=== PATIENT | male | born 1940 | race Caucasian/White ===

== ENCOUNTER 2022-06-13 07:02 | Inpatient (IN) ==
[2022-06-13] MEDS ORDERED: IOPAMIDOL 100 ML BOTTLE IV ONE (07:03)
--- NOTE | 2022-06-13 07:19 | Emergency Department Note ---
HPI General Chief complaint: Trauma Stated complaint: Fall, right hip pain Time Seen by Provider: 06/13/22 07:16 Source: EMS Mode of arrival: EMS Limitations: no limitations History of Present Illness HPI Narrative: Narrative: Patient is a 81-year-old male with a medical history significant for small lymphocytic B-cell lymphoma who presents to the emergency department due to fall last night. Patient states that he started chemotherapy a couple of weeks ago, and since then he has been very weak. He also endorses shortness of breath since that time. He states that he has to drink a lot of water, and since dr inking a lot of water has been urinating a lot. He states that he slipped on liquid last night and was unable to get up for approximately an hour and a half. He endorses right hip pain after the fall, and is concerned that he cracked his hip. He denies hitting his head, loss of consciousness, changes in vision/hearing/speech, numbness/tingling/weakness, nausea, vomiting, and any other concerns. Related Data Home Medications Medication Instructions Recorded Confirmed glucosamine HCl 1,500 mg tablet 1,500 mg PO QDAY 06/04/18 06/13/22 latanoprost 0.005 % eye drops 1 drp ophthalmic (eye) DAILY 25 06/04/18 06/13/22 days ##3 vit C 150 mg-vit E 30 unit-lutein 1 cap PO QAM 06/04/18 06/13/22 5 [id number] 3 150 mg capsule (Ocuvite) Previous Rx's Medication Instructions Recorded tamsulosin 0.4 mg capsule 0.4 mg PO QDAY #90 caps 06/17/21 sildenafil (pulm.hypertension) 20 See Rx Instructions .Route 08/28/21 mg tablet .COMPLEX #50 tabs olmesartan 20 mg tablet 20 mg PO QDAY #90 tabs 10/21/21 apixaban 5 mg tablet (Eliquis) 5 mg PO BID #180 tabs 05/27/22 omeprazole 20 mg tablet,delayed 20 mg PO QDAY #90 tabs 05/27/22 release Allergies Allergy/AdvReac Type Severity Reaction Status Date / Time ciprofloxacin [From Cipro] Allergy Unknown unknown Verified 06/13/22 07:02 levofloxacin Allergy Unknown unknown Verified 06/13/22 07:02 Review of Systems ROS ROS Narrative: Narrative: Constitutional: Reports weakness (Generalized); Denies fever Eyes: Denies eye pain or vision change ENT ED: Denies throat pain, hearing loss or rhinorrhea Cardiovascular: Denies chest pain, dyspnea on exertion, orthopnea or edema Respiratory: Reports shortness of breath; Denies cough Gastrointestinal: Denies abdominal pain, nausea, vomiting, diarrhea, constipation, hematochezia or melena Genitourinary: Denies dysuria, frequency, hematuria or incontinence Musculoskeletal: Reports joint pain (Right hip); Denies back pain or myalgia Integumentary: Denies rash or lesions Neurological: Denies headache, weakness, numbness, confusion, abnormal gait or dizziness Psychiatric: Denies anxiety, suicidal thoughts or homicidal thoughts Endocrine: Denies fatigue or polyuria Hematological/Lymphatic: Denies easy bleeding or easy bruising PFSH Narrative Patient History Narrative: Narrative: Medical/Surgical/Family History All Active Problems (Updated 06/13/22 @ 23:40 by Lázaro Sharma MD) Closed hip fracture (Acute) Small lymphocytic B-cell lymphoma involving skin (Acute) Medicare annual wellness visit, subsequent (Acute) Anemia (Acute) 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 (Acute) Elevated PSA (Acute) Iron deficiency (Acute) Dyspnea on exertion (Acute) Fatigue (Acute) BPH (benign prostatic hyperplasia) (Chronic) Medicare annual wellness visit, initial (Acute) CLL (chronic lymphocytic leukemia) (Chronic) Abnormal ultrasound of abdomen (Chronic) Lightheadedness (Chronic) Essential hypertension (Chronic) Right cataract (Chronic) Congenital dysplasia of hips, bilateral (Chronic) High blood pressure (Chronic) Right hip pain (Chronic) Cerebrovascular accident (CVA) (Chronic) 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) Weakness (Chronic) Paresthesia (Chronic) Osteoarthritis (Chronic) Numbness and tingling (Chronic) Multiple sclerosis (Chronic) Low back pain (Chronic) Lacunar syndrome (Chronic) Knee pain (Chronic) Hypercoagulopathy (Chronic) Hoarseness (Chronic) Hernia, inguinal, unilateral (Chronic) Hearing loss (Chronic) Erectile dysfunction (Chronic) Enlarged prostate (Chronic) Colon adenoma (Chronic) CVA (cerebral vascular accident) (Chronic) Cataract (Chronic) Bronchitis (Chronic) Actinic keratosis (Chronic) Abnormal blood chemistry (Chronic) Medical History Abnormal blood chemistry 07/15/2013-abnormal d dimer Abnormal respiratory rate on exertion Actinic keratosis Basal cell carcinoma Basal cell carcinoma Bronchitis chronic Cataract Cerebrovascular accident (CVA) Chest pain CLL (chronic lymphocytic leukemia) 1 skin lesion with this finding on histology, but no systemic findings with Dr. Leos. Now follows up with Onc annually. Colon adenoma 03/17/2002. Colonoscopy 05/20/2016 showed HP & diverticuli Congenital dysplasia of hips, bilateral mild Constipation CVA (cerebral vascular accident) 06/21 residual deficit RUE Enlarged prostate Erectile dysfunction Fatigue Finger fracture, right Hearing loss Hemoptysis 02/25/2013 Hernia, inguinal, unilateral High blood pressure Hoarseness Hypercoagulopathy 03/22/2014 INR slightly supratherapeutic today at 3.2. 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 05/20/16 HP & diverticuli Hx of foot surgery 12/22 right foot -Dr. Pitt Hx of tonsillectomy Family History father Malignant neoplasm of brain glioblastoma grandmother (maternal) Type 2 diabetes mellitus Social History Smoking Status: Never smoker Alcohol Intake Frequency: does not drink Exam Narrative Narrative: Narrative: General Limitations: no limitations General appearance: Present alert and in no apparent distress; Absent anxious or appears intoxicated Head Head: Present atraumatic and normocephalic Eye Eye: Present PERRL and EOMI; Absent scleral icterus ENT ENT: Present mucous membranes moist; Absent nasal congestion Neck Neck: Present full ROM; Absent tenderness Chest Chest: Present normal inspection and symmetric chest wall rise; Absent tenderness Respiratory Respiratory: Present normal lung sounds bilaterally; Absent respiratory distress or accessory muscle use Cardiovascular Cardiovascular: Present regular rate, normal rhythm and normal heart sounds Adbominal Abdominal: Present soft and normal bowel sounds; Absent distention or tenderness Extremities Extremities: Present normal inspection, full ROM and tenderness (Right hip) Back Back: Present normal inspection and full ROM; Absent tenderness Neurological Neurological: Present alert and oriented X3 Psychiatric Psychiatric: Present normal affect and normal mood Skin Skin: Present warm (WNL), dry and normal color Course Vital Signs Vital signs: Vital Signs Temperature 98.7 F 06/13/22 07:02 Pulse Rate 73 06/13/22 07:02 Respiratory Rate 16 06/13/22 07:02 Blood Pressure 98/53 06/13/22 07:02 Pulse Oximetry (%) 99 06/13/22 07:02 Oxygen Delivery Method 06/13/22 07:02 Temperature 99.2 F H 06/13/22 19:07 Pulse Rate 90 06/13/22 19:07 Respiratory Rate 13 06/13/22 19:07 Blood Pressure 127/73 06/13/22 19:06 Pulse Oximetry (%) 95 06/13/22 21:30 Oxygen Delivery Method 06/13/22 21:30 Oxygen Flow Rate (L/min) 6 06/13/22 18:23 [facility] MDM Narrative Medical decision making narrative: Narrative: Patient is a 81-year-old male who presents to the emergency department due to fall. It is possible the patient has a hip fracture given this fall, hip pain, and tenderness. Given patient's shortness of breath, history of pulmonary embolus, and recent diagnosis of cancer there is concern for potential pulmonary embolus. CT PE is negative for pulmonary embolus. Patient's hip x-ray does demonstrate hip fracture. I have spoken to Dr. Sanchez for orthopedics to has agreed to see patient and admit due to his hip fracture. He has requested consult with hospitalist due to patient's diagnosis of CLL. I spoken to Dr. Harkins who has agreed to consult. Lab Data Result diagrams: 06/13/22 07:32 Labs: Lab Results 06/13/22 06/13/22 06/13/22 Range/Units 07:30 07:32 07:32 WBC 17.0 H (4.5-11.0) K/mcL RBC 5.41 (4.63-6.08) M/mcL Hgb 16.6 (13.7-17.5) g/dL Hct 48.3 (40.1-51.0) % POC Hct (41-55) MCV 89.3 (80.0-100.0) fL MCH 30.7 (26.0-34.0) pg MCHC 34.4 (31.0-36.0) g/dL RDW 15.2 H (11.5-14.5) % Plt Count 168 (140-440) K/mcL MPV 10.3 (7.4-10.4) fL Immature Gran % (Auto) 1.0 H (0.0-0.5) % Neut % (Auto) 88.2 H (38.0-78.0) % Lymph % (Auto) 1.3 L (15.5-49.0) % [place] % (Auto) 8.8 (1.0-12.0) % Eos % (Auto) 0.5 (0.0-7.0) % Baso % (Auto) 0.2 (0.0-2.0) % Lymph # (Auto) 0.22 L (1.50-4.80) K/mcL [place] # (Auto) 1.49 H (0.10-0.90) K/mcL Eos # (Auto) 0.09 (0.00-0.70) K/mcL Baso # (Auto) 0.03 (0.00-0.30) K/mcL Immature Gran # 0.17 H (0.00-0.05) K/mcl Absolute Neutrophils 15.01 H (1.80-8.00) K/mcL PT 16.5 H (11.9-14.5) sec INR 1.3 H (0.9-1.1) POC Sodium (133-145) POC Potassium (3.3-5.1) POC Chloride (96-108) POC Total CO2 (22-30) POC BUN (6-20) POC Creatinine (0.6-1.2) POC Glucose (70-105) POC WB Ioniz Calcium (1.16-1.32) Total Creatine Kinase 109 (24-195) U/L Procalcitonin (<0.10) ng/mL Urine Color Urine Appearance (Clear) Urine pH (5.0-9.0) Ur Specific [place] (1.000-1.035) Urine Protein (Negative) mg/dL Urine Glucose (UA) (Negative) mg/dL Urine Ketones (Negative) mg/dL Urine Occult Blood (Negative) cristina/mcL Urine Nitrate (Negative) Urine Bilirubin (Negative) mg/dL Urine Urobilinogen mg/dL Ur Leukocyte Esterase (Negative) /uL Urine RBC (0-3) /hpf Urine WBC (0-4) /hpf Ur Squamous Epith Cells (0-4) /hpf Urine Bacteria (0) /hpf Urine Mucus (None) /hpf Ur Culture Indicated? POC Troponin I (0.02-0.08) 06/13/22 06/13/22 06/13/22 Range/Units 07:32 07:33 08:37 WBC (4.5-11.0) K/mcL RBC (4.63-6.08) M/mcL Hgb (13.7-17.5) g/dL Hct (40.1-51.0) % POC Hct 53.0 (41-55) MCV (80.0-100.0) fL MCH (26.0-34.0) pg MCHC (31.0-36.0) g/dL RDW (11.5-14.5) % Plt Count (140-440) K/mcL MPV (7.4-10.4) fL Immature Gran % (Auto) (0.0-0.5) % Neut % (Auto) (38.0-78.0) % Lymph % (Auto) (15.5-49.0) % [place] % (Auto) (1.0-12.0) % Eos % (Auto) (0.0-7.0) % Baso % (Auto) (0.0-2.0) % Lymph # (Auto) (1.50-4.80) K/mcL [place] # (Auto) (0.10-0.90) K/mcL Eos # (Auto) (0.00-0.70) K/mcL Baso # (Auto) (0.00-0.30) K/mcL Immature Gran # (0.00-0.05) K/mcl Absolute Neutrophils (1.80-8.00) K/mcL PT (11.9-14.5) sec INR (0.9-1.1) POC Sodium 130 L (133-145) POC Potassium 4.7 (3.3-5.1) POC Chloride 95 L (96-108) POC Total CO2 30.0 (22-30) POC BUN 28 H (6-20) POC Creatinine 1.2 (0.6-1.2) POC Glucose 89 (70-105) POC WB Ioniz Calcium 1.17 (1.16-1.32) Total Creatine Kinase (24-195) U/L Procalcitonin 0.34 H (<0.10) ng/mL Urine Color Urine Appearance (Clear) Urine pH (5.0-9.0) Ur Specific [place] (1.000-1.035) Urine Protein (Negative) mg/dL Urine Glucose (UA) (Negative) mg/dL Urine Ketones (Negative) mg/dL Urine Occult Blood (Negative) cristina/mcL Urine Nitrate (Negative) Urine Bilirubin (Negative) mg/dL Urine Urobilinogen mg/dL Ur Leukocyte Esterase (Negative) /uL Urine RBC (0-3) /hpf Urine WBC (0-4) /hpf Ur Squamous Epith Cells (0-4) /hpf Urine Bacteria (0) /hpf Urine Mucus (None) /hpf Ur Culture Indicated? POC Troponin I 0 L (0.02-0.08) 06/13/22 Range/Units 12:42 WBC (4.5-11.0) K/mcL RBC (4.63-6.08) M/mcL Hgb (13.7-17.5) g/dL Hct (40.1-51.0) % POC Hct (41-55) MCV (80.0-100.0) fL MCH (26.0-34.0) pg MCHC (31.0-36.0) g/dL RDW (11.5-14.5) % Plt Count (140-440) K/mcL MPV (7.4-10.4) fL Immature Gran % (Auto) (0.0-0.5) % Neut % (Auto) (38.0-78.0) % Lymph % (Auto) (15.5-49.0) % [place] % (Auto) (1.0-12.0) % Eos % (Auto) (0.0-7.0) % Baso % (Auto) (0.0-2.0) % Lymph # (Auto) (1.50-4.80) K/mcL [place] # (Auto) (0.10-0.90) K/mcL Eos # (Auto) (0.00-0.70) K/mcL Baso # (Auto) (0.00-0.30) K/mcL Immature Gran # (0.00-0.05) K/mcl Absolute Neutrophils (1.80-8.00) K/mcL PT (11.9-14.5) sec INR (0.9-1.1) POC Sodium (133-145) POC Potassium (3.3-5.1) POC Chloride (96-108) POC Total CO2 (22-30) POC BUN (6-20) POC Creatinine (0.6-1.2) POC Glucose (70-105) POC WB Ioniz Calcium (1.16-1.32) Total Creatine Kinase (24-195) U/L Procalcitonin (<0.10) ng/mL Urine Color Yellow Urine Appearance Clear (Clear) Urine pH 6.0 (5.0-9.0) Ur Specific [place] 1.015 (1.000-1.035) Urine Protein Negative (Negative) mg/dL Urine Glucose (UA) Negative (Negative) mg/dL Urine Ketones Negative (Negative) mg/dL Urine Occult Blood Trace-intact A (Negative) cristina/mcL Urine Nitrate Negative (Negative) Urine Bilirubin Negative (Negative) mg/dL Urine Urobilinogen Normal mg/dL Ur Leukocyte Esterase Negative (Negative) /uL Urine RBC 1 (0-3) /hpf Urine WBC 2 (0-4) /hpf Ur Squamous Epith Cells 0 (0-4) /hpf Urine Bacteria None (0) /hpf Urine Mucus Few A (None) /hpf Ur Culture Indicated? No POC Troponin I (0.02-0.08) ED POC Tests ED POC Tests: [place] - Influenza A Negative [place] - Influenza B Negative [place] - SARS Antigen Negative EKG Data EKG #1: EKG attestation: Yes I reviewed and interpreted this EKG. EKG results narrative: Normal sinus rhythm with a rate of 81, left axis deviation, DE of 184, QRS of 95, QTc of 405, T wave flattening in lead III, and absence of ST elevation or depression. Discharge Plan Patient/Caregiver Discharge Instructions Pt seen by FIELD INSTALLATION TECHNICIAN/PA only: No Clinical Impression: Closed hip fracture Patient Disposition: Xfer As Inpt ([facility]) Discharge Date/Time: 06/13/22 13:00
[2022-06-13 07:37] LABS: POC Calcium, Ionized 1.17 (1.16-1.32); POC Creatinine 1.2 (0.6-1.2); POC Potassium 4.7 (3.3-5.1)
[2022-06-13] MEDS ORDERED: 0.9 % SODIUM CHLORIDE 500 ML IV ONE (07:47)
[2022-06-13 08:08] LABS: Basophils # (Auto) 0.03 K/mcL (0.00-0.30); Basophils % (Auto) 0.2 % (0.0-2.0); Eosinophils # (Auto) 0.09 K/mcL (0.00-0.70); Eosinophils % (Auto) 0.5 % (0.0-7.0); Hematocrit 48.3 % (40.1-51.0); Hemoglobin 16.6 g/dL (13.7-17.5); Lymphocytes # (Auto) 0.22 K/mcL (1.50-4.80); Lymphocytes % (Auto) 1.3 % (15.5-49.0); Mean Cell Volume 89.3 fL (80.0-100.0); Mean Corpuscular HGB Conc 34.4 g/dL (31.0-36.0); Mean Platelet Volume 10.3 fL (7.4-10.4); Monocytes # (Auto) 1.49 K/mcL (0.10-0.90); Monocytes % (Auto) 8.8 % (1.0-12.0); Neutrophils % (Auto) 88.2 % (38.0-78.0); Platelet Count 168 K/mcL (140-440); RBC 5.41 M/mcL (4.63-6.08); Red Cell Distribution Width 15.2 % (11.5-14.5)
[2022-06-13 08:26] LABS: Creatine Kinase 109 U/L (24-195)
--- NOTE | 2022-06-13 10:38 | XRay Report ---
CLINICAL INFORMATION: Trauma COMPARISON: 04/01/2021 TECHNIQUE: Portable FINDINGS: The heart size, mediastinum and pulmonary vessels are unremarkable. The lungs are clear. There are no effusions. The bones and soft tissues are within normal limits. IMPRESSION: Normal chest. Interpreted and Authenticated by: Robert Ravi 06/13/22
--- NOTE | 2022-06-13 10:40 | XRay Report ---
CLINICAL INFORMATION: Trauma COMPARISON: 10/08/2016 FINDINGS: Subcapital fracture of the right hip shows only minimal displacement and impaction. Sacroiliac and hip joints are normal in width and alignment without arthritic change. Soft tissues are unremarkable. IMPRESSION: Minimally displaced, impacted acute subcapital fracture-right hip Interpreted and Authenticated by: Robert Ravi 06/13/22
[2022-06-13] MEDS ORDERED: HYDROmorphone 0.5 MG/0.5 ML SYRINGE IV ONE (10:41)
--- NOTE | 2022-06-13 11:33 | Cat Scan Report ---
CLINICAL INFORMATION: Trauma. Chest pain COMPARISON: 05/15/2022 TECHNIQUE: 80ml of Isovue-370 were injected intravenously. Using SmartPrep to maximize pulmonary artery opacification, .625mm helical slices were obtained from the lung apices through the lung bases. Following reconstruction, 2.5 mm sagittal, coronal, and axial reformations were processed. The exam was reviewed at mediastinal, lung, and bone windows. The exam was performed using radiation dose optimization techniques including, but not limited to, automated exposure control, adjustment of the mA and/or kV according to patient size and use of iterative reconstruction technique. FINDINGS: Pulmonary parenchymal windows show 5 mm well-circumscribed nodule in the left lower lobe adjacent to the major fissure on MIP image 47. It should represent a benign subpulmonic lymph node. Few small calcified granulomas, less than 5 mm, seen in both lungs are stable. Minimal subsegmental atelectasis seen in both posterior lower lobes. No infiltrates or effusions. Mediastinal windows show mild cardiomegaly. Moderate calcific plaque in the coronary arteries. The pulmonary arteries are normal diameter well-opacified no evidence of embolus. Thoracic aorta is also normal diameter with minimal diffuse intimal thickening. There are no enlarged lymph nodes within the mediastinum, hilar or axillary region. Esophagus grossly normal. Thyroid unremarkable. Bones and soft tissues the chest wall show no abnormality. IMPRESSION: 1. No evidence of pulmonary embolus or other acute cardiopulmonary process. Interpreted and Authenticated by: Robert Ravi 06/13/22
[2022-06-13 12:52] LABS: INR 1.3 (0.9-1.1); Prothrombin Time 16.5 sec (11.9-14.5)
[2022-06-13 13:44] LABS: Appearance,Urine Clear (Clear); Bilirubin,Urine Negative (Negative); Color,Urine Yellow; Culture Indicated,Urine No; Glucose,Urine (UA) Negative (Negative); Ketones,Urine Negative (Negative); Leukocyte Esterase,Urine Negative /uL (Negative); Mucus,Urine FEW /hpf; Nitrate,Urine Negative (Negative); Protein,Urine Negative (Negative); Specific Gravity,Urine 1.015 (1.000-1.035); Urine Blood Trace-intact ery/mcL (Negative); Urine RBC 1 /hpf (0-3); Urine Squamous Epithelial Cell 0 /hpf (0-4); Urine WBC 2 /hpf (0-4); Urobilinogen,Urine Normal
--- NOTE | 2022-06-13 16:04 | Internal Medicine Consult Note ---
HPI Data of Consult Consult date: 06/13/22 Primary Care Provider: Robert Huff DO Consult Narrative Patient Information: Note initiated : 06/13/22 at 3:58 pm Service Date, if different from initiated Date: [] Patient: Bhupendra Malik 81 y/o M admitted on 06/13/22 for Fall, right hip pain. Chief Complaint: [Fall] 81-year-old male with a past medical history significant for CLL actively undergoing chemotherapy, hypertension, BPH, and prior VTE on Eliquis who presents to the hospital with a ground-level mechanical fall and was found to have a subcapital fracture of the right hip with minimal displacement and impaction per x-ray findings. The patient states that normally he is quite active and healthy and does not use a mobility aid. However since he started chemotherapy 2 weeks ago, he states that he is very fatigued and has felt quite weak. He denies any recent weight loss or inappetence. The patient states that he does have terminal dribbling and a poor urinary stream. He believes that there may be some urine on the floor and unfortunately he slipped on and fell today. On arrival, he was hemodynamically stable and afebrile. The hospitalist service has been asked to consult to help with his medication management. Chief complaint: Right hip pain Reason for consult: Medical comanagement cc:: CC: Braydon Kat Review of Systems All systems: reviewed and no additional remarkable complaints except as stated Constitutional Constitutional: Present as per HPI EENT Eyes: Present as per HPI; Absent blurry vision Cardiovascular Cardiovascular: Present as per HPI; Absent chest pain, dyspnea, dyspnea on exertion, leg edema or palpatations Respiratory Respiratory: Present as per HPI; Absent cough, dyspnea, dyspnea on exertion, wheezing or stridor Gastrointestinal Gastrointestinal: Present as per HPI; Absent abdominal pain, diarrhea, dysphagia, hematemesis, melena, nausea or vomiting Musculoskeletal Musculoskeletal: Present as per HPI; Absent joint swelling, limited range of motion, muscle cramps, muscle weakness or myalgias Integumentary Integumentary: Present as per HPI; Absent erythema, new lesions, rash or wounds Neurological Neurological: Present as per HPI; Absent abnormal gait, behavioral changes, focal weakness, headache(s), loss of vision, numbness, sensory deficit or syncope Endocrine Endocrine: Absent change in body appearance, fatigue or heat intolerance Hematologic/Lymphatic Hematologic/Lymphatic: Present as per HPI PFSH PFSH All Active Problems (Updated 05/27/22 @ 17:32 by Robert Huff DO) Small lymphocytic B-cell lymphoma involving skin (Acute) Medicare annual wellness visit, subsequent (Acute) Anemia (Acute) [facility] current use of anticoagulant (Acute) Elevated PSA (Acute) Iron deficiency (Acute) Dyspnea on exertion (Acute) Fatigue (Acute) BPH (benign prostatic hyperplasia) (Chronic) Medicare annual wellness visit, initial (Acute) CLL (chronic lymphocytic leukemia) (Chronic) Abnormal ultrasound of abdomen (Chronic) Lightheadedness (Chronic) Essential hypertension (Chronic) Right cataract (Chronic) Congenital dysplasia of hips, bilateral (Chronic) High blood pressure (Chronic) Right hip pain (Chronic) Cerebrovascular accident (CVA) (Chronic) 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) Weakness (Chronic) Paresthesia (Chronic) Osteoarthritis (Chronic) Numbness and tingling (Chronic) Multiple sclerosis (Chronic) Low back pain (Chronic) Lacunar syndrome (Chronic) Knee pain (Chronic) Hypercoagulopathy (Chronic) Hoarseness (Chronic) Hernia, inguinal, unilateral (Chronic) Hearing loss (Chronic) Erectile dysfunction (Chronic) Enlarged prostate (Chronic) Colon adenoma (Chronic) CVA (cerebral vascular accident) (Chronic) Cataract (Chronic) Bronchitis (Chronic) Actinic keratosis (Chronic) Abnormal blood chemistry (Chronic) Medical History Abnormal blood chemistry 07/15/2013-abnormal d dimer Abnormal respiratory rate on exertion Actinic keratosis Basal cell carcinoma Basal cell carcinoma Bronchitis chronic Cataract Cerebrovascular accident (CVA) Chest pain CLL (chronic lymphocytic leukemia) 1 skin lesion with this finding on histology, but no systemic findings with Dr. Leos. Now follows up with Onc annually. Colon adenoma 03/17/2002. Colonoscopy 05/20/2016 showed HP & diverticuli Congenital dysplasia of hips, bilateral mild Constipation CVA (cerebral vascular accident) 06/21 residual deficit RUE Enlarged prostate Erectile dysfunction Fatigue Finger fracture, right Hearing loss Hemoptysis 02/25/2013 Hernia, inguinal, unilateral High blood pressure Hoarseness Hypercoagulopathy 03/22/2014 INR slightly supratherapeutic today at 3.2. 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 05/20/16 HP & diverticuli Hx of foot surgery 12/22 right foot -Dr. 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Route 08/28/21 06/13/22 Rx mg tablet .COMPLEX #50 tabs olmesartan 20 mg tablet 20 mg PO QDAY #90 tabs 10/21/21 06/13/22 Rx apixaban 5 mg tablet (Eliquis) 5 mg PO BID #180 tabs 05/27/22 06/13/22 Rx omeprazole 20 mg tablet,delayed 20 mg PO QDAY #90 tabs 05/27/22 06/13/22 Rx release Allergies Allergy/AdvReac Type Severity Reaction Status Date / Time ciprofloxacin [From Cipro] Allergy Unknown unknown Verified 06/13/22 07:02 levofloxacin Allergy Unknown unknown Verified 06/13/22 07:02 EXAM Constitutional Vitals: Temp Pulse Resp BP Pulse Ox O2 Del Method 98.5 F 82 18 118/63 97 06/13/22 14:08 06/13/22 14:08 06/13/22 14:08 06/13/22 14:08 06/13/22 14:08 06/13/22 14:08 General appearance: average body habitus Head Head exam: Present atraumatic, normal inspection and normocephalic Eye Eye exam: Present EOMI, normal appearance and PERRL; Absent conjunctival injection ENT ENT exam: Present normal exam; Absent mucous membranes dry Neck Neck exam: Present full ROM; Absent lymphadenopathy Respiratory Respiratory exam: Present normal respiratory exam and CTAB; Absent decreased breath sounds, respiratory distress or wheezes Cardiovascular Cardiovascular exam: Present normal rate and rhythm and RRR; Absent JVD GI/Abdominal GI/Abdominal exam: Present normal bowel sounds and soft; Absent diminished bowel sounds, distended, guarding, mass, rebound or tenderness Neurological Exam Neurological exam: Present alert, CN II-XII intact and oriented X3 Psychiatric Psychiatric exam: Present normal affect and normal mood Skin Skin exam: Present intact and warm; Absent erythema, pallor, petechiae or rash DATA Data Completed and Pending Labs: Labs from last 24 hours 06/13/22 06/13/22 06/13/22 12:42 08:37 07:33 WBC RBC Hgb Hct POC Hct 53.0 MCV MCH MCHC RDW Plt Count MPV Immature Gran % (Auto) Neut % (Auto) Lymph % (Auto) [place] % (Auto) Eos % (Auto) Baso % (Auto) Lymph # (Auto) [place] # (Auto) Eos # (Auto) Baso # (Auto) Immature Gran # Absolute Neutrophils PT INR POC Sodium 130 L POC Potassium 4.7 POC Chloride 95 L POC Total CO2 30.0 POC BUN 28 H POC Creatinine 1.2 POC Glucose 89 POC WB Ioniz Calcium 1.17 Total Creatine Kinase Procalcitonin Urine Color Yellow Urine Appearance Clear Urine pH 6.0 Ur Specific [place] 1.015 Urine Protein Negative Urine Glucose (UA) Negative Urine Ketones Negative Urine Occult Blood Trace-intact A Urine Nitrate Negative Urine Bilirubin Negative Urine Urobilinogen Normal Ur Leukocyte Esterase Negative Urine RBC 1 Urine WBC 2 Ur Squamous Epith Cells 0 Urine Bacteria None Urine Mucus Few A Ur Culture Indicated? No POC Troponin I 0 L 06/13/22 06/13/22 06/13/22 07:32 07:32 07:32 WBC 17.0 H RBC 5.41 Hgb 16.6 Hct 48.3 POC Hct MCV 89.3 MCH 30.7 MCHC 34.4 RDW 15.2 H Plt Count 168 MPV 10.3 Immature Gran % (Auto) 1.0 H Neut % (Auto) 88.2 H Lymph % (Auto) 1.3 L [place] % (Auto) 8.8 Eos % (Auto) 0.5 Baso % (Auto) 0.2 Lymph # (Auto) 0.22 L [place] # (Auto) 1.49 H Eos # (Auto) 0.09 Baso # (Auto) 0.03 Immature Gran # 0.17 H Absolute Neutrophils 15.01 H PT INR POC Sodium POC Potassium POC Chloride POC Total CO2 POC BUN POC Creatinine POC Glucose POC WB Ioniz Calcium Total Creatine Kinase 109 Procalcitonin 0.34 H Urine Color Urine Appearance Urine pH Ur Specific [place] Urine Protein Urine Glucose (UA) Urine Ketones Urine Occult Blood Urine Nitrate Urine Bilirubin Urine Urobilinogen Ur Leukocyte Esterase Urine RBC Urine WBC Ur Squamous Epith Cells Urine Bacteria Urine Mucus Ur Culture Indicated? POC Troponin I 06/13/22 07:30 WBC RBC Hgb Hct POC Hct MCV MCH MCHC RDW Plt Count MPV Immature Gran % (Auto) Neut % (Auto) Lymph % (Auto) [place] % (Auto) Eos % (Auto) Baso % (Auto) Lymph # (Auto) [place] # (Auto) Eos # (Auto) Baso # (Auto) Immature Gran # Absolute Neutrophils PT 16.5 H INR 1.3 H POC Sodium POC Potassium POC Chloride POC Total CO2 POC BUN POC Creatinine POC Glucose POC WB Ioniz Calcium Total Creatine Kinase Procalcitonin Urine Color Urine Appearance Urine pH Ur Specific [place] Urine Protein Urine Glucose (UA) Urine Ketones Urine Occult Blood Urine Nitrate Urine Bilirubin Urine Urobilinogen Ur Leukocyte Esterase Urine RBC Urine WBC Ur Squamous Epith Cells Urine Bacteria Urine Mucus Ur Culture Indicated? POC Troponin I A/P Narrative A/P Narrative: #VTE -The patient states that he has a remote history of DVT and PE. 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 The details of the story remain unclear. He was previously on Coumadin and was recently switched to a DOAC. His last dose of Coumadin was yesterday. We will hold that 1 day prior and 1 day after in the perioperative period #?PAH -I reviewed the patient's medication list, and he states that he does not have a history of pulmonary arterial hypertension. On his medication list, it was noted that he takes sildenafil. This is not Revatio, and instead is simply viagra #CLL -The patient's white blood cell count is elevated at 17,000 however there is no evidence of any underlying infectious process. 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 daily will be held #BPH -We will hold his Flomax for the time being Thank you for allowing me to participate in the care of this patient. I will continue to follow along. Do not hesitate to call with any questions or concerns. Time Spent With Patient Time: Total time spent is greater than 50% in coordination of care (as documented) at patient's floor/unit and/or counseling patient:
[2022-06-13] MEDS ORDERED: ceFAZolin 2 GM in DEXTROSE 5% IN WATER 50 ML IV SCH (16:15)
[2022-06-13] MEDS ORDERED: TRANEXAMIC ACID 1,000 MG/10 ML VIAL ONE ×2 (16:55→18:39)
[2022-06-13] MEDS ORDERED: ONDANSETRON 4 MG/2 ML VIAL ONE (16:55)
[2022-06-13] MEDS ORDERED: ROCURONIUM 10 MG/ML ML IV ONE (16:55)
[2022-06-13] MEDS ORDERED: ROPIVACAINE HCL/PF 30 ML VIAL IJ ONE (16:55)
[2022-06-13] MEDS ORDERED: LIDOCAINE HCL/PF 100 MG/5 ML SYRINGE IV ONE (16:55)
[2022-06-13] MEDS ORDERED: METOPROLOL TARTRATE 5 MG/5 ML VIAL IV ONE (16:55)
[2022-06-13] MEDS ORDERED: HYDROmorphone 1 MG/ML SYRINGE ONE (16:55)
[2022-06-13] MEDS ORDERED: MAGNESIUM SULFATE 2 GM/50 ML BAG IV ONE (16:55)
[2022-06-13] MEDS ORDERED: KETAMINE 50 MG/ML Syringe (ANEST) IV ONE (16:55)
[2022-06-13] MEDS ORDERED: GLYCOPYRROLATE 0.2 MG/ML VIAL IV ONE (16:55)
[2022-06-13] MEDS ORDERED: SUGAMMADEX SODIUM 200 MG/2 ML VIAL IV ONE (16:55)
--- NOTE | 2022-06-13 17:39 | EKG ---
[facility] Test Date: 2022-06-13 Pat Name: Bhupendra Malik Department: ED Room: Gender: Male Director Of Ancillary Services: : 1940 Requested By: Lázaro Sharma Order Number: [id number] Reading MD: Siva Hager Measurements Intervals [place] Rate: 81 P: 68 CO: 184 QRS: -31 QRSD: 95 T: 45 QT: 349 QTc: 405 Interpretive Statements Sinus rhythm Left axis deviation Electronically Signed On 06-13-2022 17:38:49 PDT by Siva Hager /store/M0/[id number]
[2022-06-13] MEDS ORDERED: ACETAMINOPHEN 325 MG TABLET PO PRN (17:58)
[2022-06-13] MEDS ORDERED: POLYETHYLENE GLYCOL 3350 17 GM PACKET PO PRN (17:58)
[2022-06-13] MEDS ORDERED: HYDROmorphone 1 MG/ML SYRINGE IV PRN (17:58)
[2022-06-13] MEDS ORDERED: FLEETS ADULT ENEMA PR PRN (17:58)
[2022-06-13] MEDS ORDERED: TEMAZEPAM 15 MG CAPSULE PO PRN (17:58)
[2022-06-13] MEDS ORDERED: MAGNESIUM HYDROXIDE 30 ML ORAL.SUSP PO PRN (17:58)
[2022-06-13] MEDS ORDERED: BISACODYL 10 MG SUPP.RECT PR PRN (17:58)
[2022-06-13] MEDS ORDERED: ONDANSETRON 4 MG/2 ML VIAL IV PRN ×3 (17:58→18:35)
[2022-06-13] MEDS ORDERED: HYDROcodone/APAP 10/325MG TABLET PO PRN (17:58)
[2022-06-13] MEDS ORDERED: TRANEXAMIC ACID 1,000 MG/10 ML VIAL IV ONE (17:58)
--- NOTE | 2022-06-13 18:06 | Brief Operative Note ---
Brief Operative Note Date of procedure: 06/13/22 Pre-op diagnosis: right hip fracture Post-op diagnosis: same Procedure: Right hip fracture hemiarthroplasty Grafts/Implants: Yes Anesthesia: GETA Findings: femoral neck fx Complications: none Surgeon: Braydon Kat Productivity Engineer: Cristal Rainey Estimated blood loss (cc): 40 Specimens Removed/Pathology: none sent Condition: stable Disposition: PACU
[2022-06-13] MEDS ORDERED: NALOXONE HCL 0.4 MG/ML VIAL IV PRN (18:35)
[2022-06-13] MEDS ORDERED: ACETAMINOPHEN 1,000 MG/100 ML BAG IV ONE (18:35)
[2022-06-13] MEDS ORDERED: MEPERIDINE 25 MG/ML VIAL IV PRN (18:35)
[2022-06-13] MEDS ORDERED: METOPROLOL TARTRATE 5 MG/5 ML VIAL IV PRN (18:35)
[2022-06-13] MEDS ORDERED: LACTATED RINGERS 250 ML IV PRN (18:35)
[2022-06-13] MEDS ORDERED: fentaNYL 100 MCG/2 ML VIAL IV PRN (18:35)
[2022-06-13] MEDS ORDERED: IPRATROPIUM/ALBUTEROL 3 ML AMPUL.NEB NEB PRN (18:35)
[2022-06-13] MEDS ORDERED: LABETALOL 5 MG/ML ML IV PRN (18:35)
[2022-06-13] MEDS ORDERED: PROMETHAZINE 25 MG/ML VIAL IV PRN (18:35)
[2022-06-13] MEDS ORDERED: LACTATED RINGERS 1,000 ML IV SCH (18:45)
[2022-06-13] MEDS ORDERED: KETOROLAC 15 MG/ML VIAL IV PRN (18:54)
[2022-06-13] MEDS ORDERED: fentaNYL 100 MCG/2 ML VIAL IV ONE (18:59)
[2022-06-13] MEDS: DOCUSATE SODIUM 100 MG CAPSULE PO SCH (20:51)
[2022-06-13] MEDS: 0.9 % SODIUM CHLORIDE 10 ML SYRINGE IV SCH (20:54)
[2022-06-13] MEDS: ASPIRIN 81 MG TAB.CHEW CHEWED SCH (20:54)
[2022-06-13] MEDS ORDERED: SENNOSIDES 1 TABLET PO SCH (21:00)
[2022-06-14] MEDS: LACTATED RINGERS 1,000 ML IV SCH ×2 (00:19→06:14)
--- NOTE | 2022-06-14 01:06 | XRay Report ---
. CLINICAL INFORMATION: Follow-up right subcapital fracture. COMPARISON: None. FINDINGS: Right hip prostheses is anatomically aligned. The left hip and both SI joints are unremarkable. Soft tissue swelling over the surgical site as expected. IMPRESSION: Right hip prostheses in anatomic position Interpreted and Authenticated by: Robert Ravi 06/14/22
[2022-06-14] MEDS: ceFAZolin 1 GM VIAL IV SCH ×2 (01:44→09:09)
[2022-06-14] MEDS: 0.9 % SODIUM CHLORIDE 10 ML SYRINGE IV SCH (06:14)
[2022-06-14] MEDS ORDERED: LATANOPROST OPHTH DROPS 2.5ML BOTTLE OD SCH (09:00)
[2022-06-14] MEDS ORDERED: TAMSULOSIN 0.4 MG CAPSULE PO SCH (09:00)
[2022-06-14] MEDS: DOCUSATE SODIUM 100 MG CAPSULE PO SCH (09:10)
[2022-06-14] MEDS: ASPIRIN 81 MG TAB.CHEW CHEWED SCH (09:10)
[2022-06-14 09:21] LABS: Basophils # (Auto) 0.01 K/mcL (0.00-0.30); Basophils % (Auto) 0.1 % (0.0-2.0); Eosinophils # (Auto) 0 K/mcL (0.00-0.70); Eosinophils % (Auto) 0 % (0.0-7.0); Hematocrit 45.1 % (40.1-51.0); Hemoglobin 14.6 g/dL (13.7-17.5); Lymphocytes # (Auto) 0.22 K/mcL (1.50-4.80); Mean Corpuscular HGB Conc 32.4 g/dL (31.0-36.0); Mean Platelet Volume 8.9 fL (7.4-10.4); Monocytes # (Auto) 0.39 K/mcL (0.10-0.90); Monocytes % (Auto) 3.6 % (1.0-12.0); Neutrophils % (Auto) 93.8 % (38.0-78.0); Platelet Count 117 K/mcL (140-440); RBC 4.85 M/mcL (4.63-6.08); Red Cell Distribution Width 15.3 % (11.5-14.5); WBC 10.9 K/mcL (4.5-11.0)
--- NOTE | 2022-06-14 09:31 | Orthopedic Progress Note ---
SUBJECTIVE Subjective Patient information: Note initiated : 06/14/22 at 9:22 am Service Date, if different from initiated Date: [] Patient: Bhupendra Malik 81 y/o M admitted on 06/13/22 for Fall, right hip pain. Chief Complaint: [minimal pain and eating and walking well] Principal diagnosis: right hip fx Constitutional Vitals: Vital Signs Temp Pulse Resp BP Pulse Ox O2 Del Method O2 Flow Rate 96.8 F L 78 16 129/79 96 6 06/14/22 08:00 06/14/22 03:50 06/14/22 08:00 06/14/22 08:00 06/14/22 08:00 06/14/22 08:00 06/13/22 18:23 Period Temp Pulse Resp BP Sys/Pal Pulse Ox O2 Del Method O2 Flow Rate Last 24 Hr 96.8 F-99.2 F 78-101 9-20 105-145/48-120 91-100 Room Air-Room Air 6 Intake and Output 06/13/22 06/14/22 06/14/22 21:59 05:59 13:59 Intake Total 1550 500 240 Output Total 650 825 500 Balance 900 -325 -260 Weight 208 lb 9.6 oz Intake & Output: Intake & Output 06/13/22 06/14/22 06/14/22 21:59 05:59 13:59 Intake Total 1550 500 240 Output Total 650 825 500 Balance 900 -325 -260 Weight 208 lb 9.6 oz Intake: IV 150 Ancef 2 gm In Dextrose 5% in 50 Water 50 ml @ 100 mls/hr IV PREOP [facility] Rx#:[id number] Oral 500 240 IV - Manual Only 1400 Output: Void Amount 350 825 500 Estimated Blood Loss 300 Other: Meal Breakfast Percent of Meal Consumed 100% Feeding Ability Independent Urine Appearance Clear Clear Clear Urine Color Yellow Yellow Bright Yellow Urine Odor Normal Normal General appearance: average body habitus Expanded Lower Extremity Exam Neuro vascular tendon exam: Present no vascular compromise Gait: Present antalgic OBJ DATA Labs CBC & Chem 7: 06/14/22 05:16 Labs: Abnormal Lab Results 06/14/22 06/13/22 06/13/22 05:16 12:42 08:37 WBC RDW 15.3 H Plt Count 117 L Immature Gran % (Auto) Neut % (Auto) 93.8 H Lymph % (Auto) 2.0 L Lymph # (Auto) 0.22 L [place] # (Auto) Immature Gran # Absolute Neutrophils 10.23 H PT INR POC Sodium POC Chloride POC BUN Procalcitonin Urine Occult Blood Trace-intact A Urine Mucus Few A POC Troponin I 0 L 06/13/22 06/13/22 06/13/22 07:33 07:32 07:32 WBC 17.0 H RDW 15.2 H Plt Count Immature Gran % (Auto) 1.0 H Neut % (Auto) 88.2 H Lymph % (Auto) 1.3 L Lymph # (Auto) 0.22 L [place] # (Auto) 1.49 H Immature Gran # 0.17 H Absolute Neutrophils 15.01 H PT INR POC Sodium 130 L POC Chloride 95 L POC BUN 28 H Procalcitonin 0.34 H Urine Occult Blood Urine Mucus POC Troponin I 06/13/22 07:30 WBC RDW Plt Count Immature Gran % (Auto) Neut % (Auto) Lymph % (Auto) Lymph # (Auto) [place] # (Auto) Immature Gran # Absolute Neutrophils PT 16.5 H INR 1.3 H POC Sodium POC Chloride POC BUN Procalcitonin Urine Occult Blood Urine Mucus POC Troponin I Meds: Medications Acetaminophen (Acetaminophen 325 Mg Tablet) 650 mg PO Q6HP PRN; Protocol PRN Reason: Per Pain Protocol/Fever > 101 Hydrocodone Bitart/Acetaminophen (Hydrocodone/Apap 10/325mg Tablet) 1 - 2 tab PO Q4HP PRN; Protocol PRN Reason: Per Pain Protocol Aspirin (Aspirin 81 Mg Tab.Chew) 81 mg CHEWED BID [facility] Last Admin: 06/14/22 09:10 Dose: 81 mg Bisacodyl (Bisacodyl 10 Mg Supp.Rect) 10 mg WI Q2-3DAYS PRN PRN Reason: Constipation Docusate Sodium (Docusate Sodium 100 Mg Capsule) 100 mg PO BID [facility] Last Admin: 06/14/22 09:10 Dose: 100 mg Hydromorphone HCl (Hydromorphone 1 Mg/Ml Syringe) 0.5 - 2 mg IV Q2HP PRN; Protocol PRN Reason: Per Pain Protocol Lactated Ringer's (Lactated Ringers) 1,000 mls @ 100 mls/hr IV .Q10H [facility] Last Admin: 06/14/22 06:14 Dose: Not Given Latanoprost (Latanoprost Ophth Drops 2.5ml Bottle) 1 gtt OD DAILY [facility] Magnesium Hydroxide (Magnesium Hydroxide 30 Ml Oral.Susp) 30 ml PO BIDP PRN PRN Reason: Constipation Ondansetron HCl (Ondansetron 4 Mg/2 Ml Vial) 4 mg IV Q4HP PRN; Protocol PRN Reason: Nausea And Vomiting Polyethylene Glycol (Polyethylene Glycol 3350 17 Gm Packet) 17 gm PO DAILYP PRN PRN Reason: Constipation Senna (Sennosides 1 Tablet) 2 tab PO HS [facility] Last Admin: 06/13/22 20:51 Dose: Not Given Sodium Biphosphate/Sodium Phosphate (Fleets Adult Enema) 1 dose WI Q3-4DAYS PRN PRN Reason: Constipation Sodium Chloride (0.9 % Sodium Chloride 10 Ml Syringe) 10 ml IV Q8 [facility] Last Admin: 06/14/22 06:14 Dose: 10 ml Tamsulosin HCl (Tamsulosin 0.4 Mg Capsule) 0.4 mg PO QDAY [facility] Last Admin: 06/14/22 09:10 Dose: 0.4 mg Temazepam (Temazepam 15 Mg Capsule) 15 mg PO HSP PRN PRN Reason: Insomnia Impressions Impression: right hip fx treated with david arthroplasty lymphoma wiht low platelet count A/P Assessment and plan (1) Closed hip fracture: Assessment and plan: doing well wiht minimal pain Plan: dc home Status: Acute Comment: cont pt (2) Small lymphocytic B-cell lymphoma involving skin: Status: Acute 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
--- NOTE | 2022-06-14 12:04 | Internal Med Progress Note ---
SUBJECTIVE Subjective Patient information: Note initiated : 06/14/22 at 12:03 pm Service Date, if different from initiated Date: [] Patient: Bhupendra Malik 81 y/o M admitted on 06/13/22 for Fall, right hip pain. Chief Complaint: [] Principal diagnosis: right hip fx Interval history: He is eager to return home.The patient is in good spirits. Constitutional Vitals: Vital Signs Temp Pulse Resp BP Pulse Ox O2 Del Method O2 Flow Rate 96.8 F L 78 16 129/79 96 6 06/14/22 08:00 06/14/22 03:50 06/14/22 08:00 06/14/22 08:00 06/14/22 08:00 06/14/22 08:00 06/13/22 18:23 Period Temp Pulse Resp BP Sys/Pal Pulse Ox O2 Del Method O2 Flow Rate Last 24 Hr 96.8 F-99.2 F 78-101 9-20 105-145/48-120 91-100 Room Air-Room Air 6 Intake and Output 06/13/22 06/14/22 06/14/22 21:59 05:59 13:59 Intake Total 1550 500 240 Output Total 650 825 750 Balance 900 -325 -510 Weight 94.619 kg Intake & Output: Intake & Output 06/13/22 06/14/22 06/14/22 21:59 05:59 13:59 Intake Total 1550 500 240 Output Total 650 825 750 Balance 900 -325 -510 Weight 94.619 kg Intake: IV 150 Ancef 2 gm In Dextrose 5% in 50 Water 50 ml @ 100 mls/hr IV PREOP ROYCE Rx#:[id number] Oral 500 240 IV - Manual Only 1400 Output: Void Amount 350 825 750 Estimated Blood Loss 300 Other: Meal Breakfast Percent of Meal Consumed 100% Feeding Ability Independent Urine Appearance Clear Clear Clear Urine Color Yellow Yellow Bright Yellow Urine Odor Normal Normal # Voids 0 Head Head exam: Present atraumatic and normal inspection Eye Eye exam: Present normal appearance ENT ENT exam: Present mucous membranes moist, normal exam and normal external ear exam Neck Neck exam: Present normal inspection Respiratory Respiratory exam: Present normal respiratory exam Cardiovascular Cardiovascular exam: Present normal rate and rhythm GI/Abdominal GI/Abdominal exam: Present normal bowel sounds Back Exam Back exam: Present normal inspection Neurological Exam Neurological exam: Present alert and oriented X3 Skin Skin exam: Present intact and warm OBJ DATA Labs CBC & Chem 7: 06/14/22 05:16 Labs: Abnormal Lab Results 06/14/22 06/13/22 06/13/22 05:16 12:42 08:37 WBC RDW 15.3 H Plt Count 117 L Immature Gran % (Auto) Neut % (Auto) 93.8 H Lymph % (Auto) 2.0 L Lymph # (Auto) 0.22 L [place] # (Auto) Immature Gran # Absolute Neutrophils 10.23 H PT INR POC Sodium POC Chloride POC BUN Procalcitonin Urine Occult Blood Trace-intact A Urine Mucus Few A POC Troponin I 0 L 06/13/22 06/13/22 06/13/22 07:33 07:32 07:32 WBC 17.0 H RDW 15.2 H Plt Count Immature Gran % (Auto) 1.0 H Neut % (Auto) 88.2 H Lymph % (Auto) 1.3 L Lymph # (Auto) 0.22 L [place] # (Auto) 1.49 H Immature Gran # 0.17 H Absolute Neutrophils 15.01 H PT INR POC Sodium 130 L POC Chloride 95 L POC BUN 28 H Procalcitonin 0.34 H Urine Occult Blood Urine Mucus POC Troponin I 06/13/22 07:30 WBC RDW Plt Count Immature Gran % (Auto) Neut % (Auto) Lymph % (Auto) Lymph # (Auto) [place] # (Auto) Immature Gran # Absolute Neutrophils PT 16.5 H INR 1.3 H POC Sodium POC Chloride POC BUN Procalcitonin Urine Occult Blood Urine Mucus POC Troponin I Meds: Medications Acetaminophen (Acetaminophen 325 Mg Tablet) 650 mg PO Q6HP PRN; Protocol PRN Reason: Per Pain Protocol/Fever > 101 Hydrocodone Bitart/Acetaminophen (Hydrocodone/Apap 10/325mg Tablet) 1 - 2 tab PO Q4HP PRN; Protocol PRN Reason: Per Pain Protocol Aspirin (Aspirin 81 Mg Tab.Chew) 81 mg CHEWED BID [facility] Last Admin: 06/14/22 09:10 Dose: 81 mg Bisacodyl (Bisacodyl 10 Mg Supp.Rect) 10 mg DC Q2-3DAYS PRN PRN Reason: Constipation Docusate Sodium (Docusate Sodium 100 Mg Capsule) 100 mg PO BID [facility] Last Admin: 06/14/22 09:10 Dose: 100 mg Hydromorphone HCl (Hydromorphone 1 Mg/Ml Syringe) 0.5 - 2 mg IV Q2HP PRN; Protocol PRN Reason: Per Pain Protocol Lactated Ringer's (Lactated Ringers) 1,000 mls @ 100 mls/hr IV .Q10H [facility] Last Admin: 06/14/22 06:14 Dose: Not Given Latanoprost (Latanoprost Ophth Drops 2.5ml Bottle) 1 gtt OD DAILY [facility] Last Admin: 06/14/22 09:44 Dose: Not Given Magnesium Hydroxide (Magnesium Hydroxide 30 Ml Oral.Susp) 30 ml PO BIDP PRN PRN Reason: Constipation Ondansetron HCl (Ondansetron 4 Mg/2 Ml Vial) 4 mg IV Q4HP PRN; Protocol PRN Reason: Nausea And Vomiting Polyethylene Glycol (Polyethylene Glycol 3350 17 Gm Packet) 17 gm PO DAILYP PRN PRN Reason: Constipation Senna (Sennosides 1 Tablet) 2 tab PO HS [facility] Last Admin: 06/13/22 20:51 Dose: Not Given Sodium Biphosphate/Sodium Phosphate (Fleets Adult Enema) 1 dose DC Q3-4DAYS PRN PRN Reason: Constipation Sodium Chloride (0.9 % Sodium Chloride 10 Ml Syringe) 10 ml IV Q8 [facility] Last Admin: 06/14/22 06:14 Dose: 10 ml Tamsulosin HCl (Tamsulosin 0.4 Mg Capsule) 0.4 mg PO QDAY [facility] Last Admin: 06/14/22 09:10 Dose: 0.4 mg Temazepam (Temazepam 15 Mg Capsule) 15 mg PO HSP PRN PRN Reason: Insomnia A/P Narrative A/P Narrative: 06/14: The patient is doing well overall. There has been no complications in the postop period. He will continue to hold his Eliquis and reevaluate the need for anticoagulation with his primary care physician. Discussed the case with the [facility] surgery attending. He will be discharged home today. #VTE -The patient states that he has a remote history of DVT and PE. 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 The details of the story remain unclear. He was previously on Coumadin and was recently switched to a DOAC. His last dose of Coumadin was yesterday. We will hold that 1 day prior and 1 day after in the perioperative period #?PAH -I reviewed the patient's medication list, and he states that he does not have a history of pulmonary arterial hypertension. On his medication list, it was noted that he takes sildenafil. This is not Revatio, and instead is simply viag ra #CLL -The patient's white blood cell count is elevated at 17,000 however there is no evidence of any underlying infectious process. 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 daily will be held #BPH -We will hold his Flomax for the time being Thank you for allowing me to participate in the care of this patient. Plan of Treatment: dc to home Time Spent With Patient Time: Total time spent is greater than 50% in coordination of care (as documented) at patient's floor/unit and/or counseling patient: Total time spent with greater than 50% in coordination of care (as documented) at patient's floor/unit and/or counseling patient:: 25 - 35 minutes QUALITY VTE Deep Vein Thrombosis/Pulmonary Embolism Present on Admission: No
--- NOTE | 2022-06-16 07:28 | Consultation ---
DATE OF CONSULTATION: 06/13/2022 PREOPERATIVE DIAGNOSIS: Right femoral neck fracture. POST CONSULTATION: Right femoral neck fracture. HISTORY OF PRESENT ILLNESS: The patient's chief complaint is right hip pain after a same level fall. This is a 81-year-old male who has been fairly healthy, had small lymphocytic B-cell lymphoma, who presents to the emergency department due to a fall. He thought he can get around and then was seen this morning. He had immediate pain, swelling, deformity. They were x-rayed, his hip, because of the level of pain. This demonstrated a femoral neck fracture, impacted; and because of this, I was consulted. He denies hitting his head, loss of consciousness is negative. Vision, hearing, speech, and numbness or tingling or vomiting are all negative. MEDICATION LIST: Include glucosamine ophthalmic solution for eyedrops. He also takes ____, sildenafil 20 mg tablets; apixaban, which is Eliquis 5 mg daily; omeprazole 20 mg daily. PAST MEDICAL HISTORY: He does have constitutional symptoms, all of which are negative with the exception of a rash. Medical history, he does have a small lymphocytes B-cell lymphoma, anemia, iron deficiency, fatigue, benign prostatic hypertrophy, congenital dysplasia of the hip bilaterally. He has had some right hip chronic pain. He has had a CVA in the past, cataracts bilaterally. PHYSICAL EXAMINATION: GENERAL: He is a very pleasant male, who is 81 years of age. He gives a good history. He has no active chest pain or shortness of breath. He is alert, cooperative, and gives a good history. LUNGS: Clear to auscultation bilaterally. CARDIOVASCULAR: Regular rate and rhythm. ABDOMEN: Soft, nontender. SKIN: He does have a rash around his neck and face, but has been quite chronic. VITAL SIGNS: Stable and within normal limits. Temperature 98.7, pulse rate is 73, respiratory rate is 16, blood pressure 98/53. LABORATORY DATA: Hematocrit is 53. Sodium 130, potassium 47, chloride 95. The BUN is 28, creatinine is 1.2, glucose 89. X-rays of his right hip demonstrate a femoral neck fracture, impacted, and displaced or angled greater than 30 degrees. The treatment will be hemiarthroplasty at his convenience. He understands the risks and benefits of proceeding and agrees to proceed. Some of these risks include bleeding obviously because of his blood thinner. He has risk of infection because of also bleeding, heart attacks, and strokes and blood clots were all possible. He accepts these risks and the benefit being we can get him up moving right away and discharged. RHIANNON:sakshi Job ID: [id number] Doc ID: [id number] Braydon Kat MD
--- NOTE | 2022-06-16 09:18 | Operative Note ---
DATE OF OPERATION: 06/13/2022 PREOPERATIVE DIAGNOSIS: Right femoral neck fracture. POSTOPERATIVE DIAGNOSIS: Right femoral neck fracture. PROCEDURE: Right cementless hemiarthroplasty. SURGEON: Braydon Kat M.D. CEILING CLEANER: Cristal Rainey PA-C. This providers expertise and technical skill were required throughout the case. The ANGELA assisted with preoperative coordination, intraoperative retraction, wound closure, and dressing and splint application, as well as postoperative documentation and care coordination. ESTIMATED BLOOD LOSS: 40 mL size. IMPLANTS: Size 6 cementless stem with +4 neck length high offset stem, 54 ball. DESCRIPTION OF PROCEDURE: The patient was brought to the operating room, put to sleep with general LMA anesthesia, the patient turned into a left lateral position. The right hip was sterilely prepped and draped. After the timeout had been performed and preoperative antibiotic and tranexamic acid had been given, an incision superior posterior approach was performed. Through this, I was able to place a Charnley retractor, incised through the gluteus ruthann and identified the posterior edge of the greater trochanter. I then placed retractors and released the piriformis obturator internus and superior capsule. The hip was dislocated and I made the femoral neck cut through the fracture site. We then removed the labrum from the acetabulum and then broached up on the size of the femur to a size 6. This seemed to fit nicely. We then calcar reamed and trialed the size 6 with a high offset neutral neck length, near normal. We then checked for stability; it was very stable. We then removed the stem and placed the final implant after countersinking the stem to make sure it was stable and calcar reaming another 3 mm. We then placed a +6 mm cementless Byron stem with a high offset +4 neck length, 54 mm bipolar ball secondary to the hip dysplasia. There was no significant arthritis. However, the hip was reduced and we bone grafted the canal to assist with fixation of the stem. This fit very nicely. We irrigated thoroughly and reduced the hip. The fascial layer of the IT band was closed with Stratafix. Aaliyah's fascia was closed with Stratafix and adhesive closure. Sterile bandage was applied. Blood loss 40 mL. Leg lengths were equal. There was no complication. RHIANNON:luanne Job ID: [id number] Doc ID: [id number] Braydon Kat MD
== END 2022-06-14 13:12 | disposition home or self-care (01) | DRG 522 ==
LOC: ED 07:02 → MEDSUR 13:00
PROVIDERS: ADMIT Orthopaedic Surgery; ATTEND Orthopaedic Surgery